=== PATIENT | female | born 1940 | race Caucasian/White ===

== ENCOUNTER 2018-09-29 07:36 | Observation (INO) | payer OTHER ==
[~2018-09-29] VITALS: Ht 160 cm; Wt 55.2 kg
[2018-09-29 08:04] LABS: BASOPHILS # (AUTO) 0.04 x10^3/uL (0-0.1); BASOPHILS % (AUTO) 1 % (0-1); EOSINOPHILS # (AUTO) 0.06 x10^3/uL (0-0.4); EOSINOPHILS % (AUTO) 1 % (1-7); LYMPHOCYTES # (AUTO) 0.96 x10^3/uL (1-3.4); LYMPHOCYTES % (AUTO) 11 % (22-44); MD NO; MEAN CORPUSCULAR HEMOGLOBIN 31.2 pg (27.0-34.8); MEAN CORPUSCULAR HGB CONC 32.9 g/dL (32.4-35.8); MEAN CORPUSCULAR VOLUME 94.9 fL (80-100); MEAN PLATELET VOLUME 9.3 fL (7.4-10.4); MONOCYTES # (AUTO) 0.72 x10^3/uL (0.2-0.8); MONOCYTES % (AUTO) 9 % (2-9); NEUTROPHILS # (AUTO) 6.66 x10^3/uL (1.8-6.8); NEUTROPHILS % (AUTO) 79 % (42-75); PLATELET COUNT 266 x10^3/uL (130-400); RED BLOOD COUNT 3.86 x10^6/uL (3.82-5.3); RED CELL DISTRIBUTION WIDTH 13.9 % (9.6-15.2)
[2018-09-29 08:15] LABS: ALBUMIN 3.6 g/dL (3.4-5.0); ANION GAP 11 mmol/L (5-15); CHLORIDE 109 mmol/L (98-107); CREATININE 0.83 mg/dL (0.55-1.02)
[2018-09-29 08:17] LABS: CREATINE KINASE, TOTAL 156 U/L (26-192)
[2018-09-29] MEDS ORDERED: SODIUM CHLORIDE FLUSH 10ML SYR IVF PRN (09:30)
[2018-09-29] MEDS ORDERED: HYDROcodone/APAP 5/325 TABLET PO ONE (09:30)
[2018-09-29] MEDS ORDERED: HYDROcodone/APAP 5/325 TABLET PO PRN (09:30)
[2018-09-29] MEDS ORDERED: HYDROcodone/APAP 5/325 TABLET ONE (09:37)
[2018-09-29] MEDS ORDERED: SYNTHR (09:43)
[2018-09-29] MEDS ORDERED: ENALAPRIL PO (09:43)
[2018-09-29] MEDS ORDERED: CALC-46 PO (09:45)
[2018-09-29 10:39] VITALS: BP 153/74
[2018-09-29] MEDS ORDERED: TEMAZEPAM 15 MG CAPSULE PO PRN (12:30)
[2018-09-29] MEDS ORDERED: ACETAMINOPHEN 325 MG TABLET PO PRN (12:30)
[2018-09-29] MEDS ORDERED: DOCUSATE 100 MG CAPSULE PO PRN (12:30)
[2018-09-29 13:35] VITALS: BP 108/63
[2018-09-29 19:42] VITALS: BP 152/82
[2018-09-29] MEDS: CALCIUM/VITAMIN D3 250-125 TABLET PO SCH (20:05)
[2018-09-30 00:56] VITALS: BP 115/65
[2018-09-30 08:17] VITALS: BP 128/73
[2018-09-30] MEDS: CALCIUM/VITAMIN D3 250-125 TABLET PO SCH ×2 (08:19→21:06)
[2018-09-30] MEDS: ENALAPRIL 10 MG TABLET PO SCH (08:20)
[2018-09-30] MEDS ORDERED: SENNA/DOCUSATE TABLET PO PRN (12:00)
[2018-09-30] MEDS ORDERED: MAGNESIUM CITRATE 300ML ORAL SOL PO PRN (12:00)
[2018-09-30] MEDS ORDERED: ONDANSETRON ODT 4 MG PO PRN (12:00)
[2018-09-30 14:45] VITALS: BP 113/69
[2018-09-30 17:04] LABS: MICROSCOPIC AUTO
[2018-09-30 17:06] LABS: CULTURE INDICATED? YES
[2018-09-30 18:38] VITALS: BP 100/58
[2018-10-01 00:14] VITALS: BP 109/58
[2018-10-01] MEDS: LEVOTHYROXINE 88 MCG TABLET PO SCH (05:54)
[2018-10-01 07:13] VITALS: BP 89/45
[2018-10-01 07:45] VITALS: BP 94/58
[2018-10-01] MEDS: ENALAPRIL 10 MG TABLET PO SCH (07:46)
[2018-10-01] MEDS: CALCIUM/VITAMIN D3 250-125 TABLET PO SCH ×2 (07:46→20:55)
[2018-10-01] MEDS: SULFAMETH./TRIMETHOPRIM DS 800MG/160MG TABLET PO SCH ×2 (10:14→20:55)
[2018-10-01 13:18] VITALS: BP 123/69
[2018-10-01 19:36] VITALS: BP 100/67
[2018-10-02 02:10] VITALS: BP 116/60
[2018-10-02] MEDS: LEVOTHYROXINE 88 MCG TABLET PO SCH (06:21)
[2018-10-02 07:00] VITALS: BP 144/65
[2018-10-02] MEDS: CALCIUM/VITAMIN D3 250-125 TABLET PO SCH (07:44)
[2018-10-02] MEDS: SULFAMETH./TRIMETHOPRIM DS 800MG/160MG TABLET PO SCH (07:44)
[2018-10-02] MEDS ORDERED: ENALAPRIL 5MG TABLET PO SCH (09:30)
[2018-10-02 10:49] VITALS: BP 138/68
[2018-10-02 13:35] VITALS: BP 115/72
[2018-10-02] MEDS ORDERED: DOCU-131 PO (14:00)
[2018-10-02] MEDS ORDERED: SULF-169 PO (14:00)
[2018-10-02] MEDS ORDERED: TRAM50TA2 PO (14:00)
[2018-10-02] MEDS ORDERED: TEMA15CA6 PO (14:00)
[2018-10-02] MEDS ORDERED: LEVO88TA2 PO (14:00)
[2018-10-02] MEDS ORDERED: SENN1TAB8 PO (14:00)
[2018-10-02] MEDS ORDERED: ACET325T14 PO (14:00)
[2018-10-02] MEDS ORDERED: ENAL5TAB PO (14:00)
[2018-10-02 17:30] VITALS: BP 123/70
== END 2018-10-02 17:50 ==
LOC: ED 09:04 → EDIP 09:21 → INTOOBSV 09:21 → 4NOR 10:25
PROVIDERS: ADMIT Internal Medicine; ATTEND Internal Medicine
DX: S42.201A Unspecified fracture of upper end of right humerus, initial encounter for closed fracture (principal); G35 Multiple sclerosis; I10 Essential (primary) hypertension; N39.0 Urinary tract infection, site not specified; E03.9 Hypothyroidism, unspecified; M81.0 Age-related osteoporosis without current pathological fracture; W18.30XA Fall on same level, unspecified, initial encounter; Y92.009 Unspecified place in unspecified non-institutional (private) residence as the place of occurrence of the external cause; Z82.49 Family history of ischemic heart disease and other diseases of the circulatory system; Z93.59 Other cystostomy status; Z99.3 Dependence on wheelchair; Z66 Do not resuscitate
CPT/HCPCS: 36415; 73030; 80048; 81001; 82040; 82550; 85025; 87077; 87086; 87186; 97116; 97162; 97167; 99284; G0378

== ENCOUNTER → 2019-03-05 | Outpatient (CLI) | payer MEDICARE, OTHER ==
[~2019-03-05] MED LIST: ACET325T14 PO; CALC-46 PO; DOCU-131 PO; ENAL5TAB PO; ENALAPRIL PO; GADOBUTROL 7.5 MMOL/7.5 ML PFS ONE; LEVO88TA2 PO; SENN-177 PO; SULF-169 PO; SYNTHR; TEMA15CA6 PO; TRAM50TA2 PO
== END | disposition home or self-care (01) ==
LOC: CFH 09:34
PROVIDERS: ATTEND Psychiatry & Neurology Neurology
DX: M50.30 Other cervical disc degeneration, unspecified cervical region (principal); G35 Multiple sclerosis
CPT/HCPCS: 70553; 72156; A9585

== ENCOUNTER 2019-06-11 13:26 | Outpatient (CLI) | payer MEDICARE ==
[~2019-06-11 13:26] MED LIST changes: -GADOBUTROL 7.5 MMOL/7.5 ML PFS ONE
== END 2019-06-11 23:59 | disposition home or self-care (01) ==
LOC: CFH 13:26
PROVIDERS: ATTEND Physician Assistant
DX: N31.9 Neuromuscular dysfunction of bladder, unspecified (principal)
CPT/HCPCS: 76770

== ENCOUNTER → 2019-07-28 | Outpatient (CLI) | payer MEDICARE | END | disposition home or self-care (01) | LOC: RAD 15:38 | PROVIDERS: ATTEND Internal Medicine | DX: R05 Cough (principal) | CPT/HCPCS: 71046 ==

== ENCOUNTER → 2020-02-15 | Outpatient (CLI) | payer MEDICARE | END | disposition home or self-care (01) | LOC: EDSTATUS 10:45 → CFH 15:43 | PROVIDERS: ATTEND Physician Assistant | DX: N31.9 Neuromuscular dysfunction of bladder, unspecified (principal) | CPT/HCPCS: 76770 ==

== ENCOUNTER 2020-03-05 16:27 | Emergency (ER) | payer MEDICARE ==
[~2020-03-05] VITALS: Ht 154.9 cm; Wt 51.8 kg
--- NOTE | 2020-03-05 17:46 | NUR ---
URINE SAMPLE COLLECTED AND WALKED TO LAB
[2020-03-05] MEDS ORDERED: SODIUM CHLORIDE FLUSH 10ML SYR IVF ONE (18:00)
[2020-03-05 18:10] LABS: MICROSCOPIC AUTO
[2020-03-05] MEDS: SODIUM CHLORIDE 0.9% 1,000ML IVBOLUS ONE ×2 (18:14→19:16)
--- NOTE | 2020-03-05 18:21 | NUR ---
Patient received 1L NS with [facility]. Hold fluids per WEN Pearson.
[2020-03-05 18:24] LABS: BASOPHILS # (AUTO) 0.01 x10^3/uL (0-0.1); BASOPHILS % (AUTO) 0 % (0-1); EOSINOPHILS # (AUTO) 0.24 x10^3/uL (0-0.4); EOSINOPHILS % (AUTO) 2 % (1-7); LYMPHOCYTES # (AUTO) 0.37 x10^3/uL (1-3.4); LYMPHOCYTES % (AUTO) 4 % (22-44); MD NO; MEAN CORPUSCULAR HEMOGLOBIN 30.7 pg (27.0-34.8); MEAN CORPUSCULAR HGB CONC 32.9 g/dL (32.4-35.8); MEAN CORPUSCULAR VOLUME 93.3 fL (80-100); MEAN PLATELET VOLUME 9.8 fL (7.4-10.4); MONOCYTES % (AUTO) 7 % (2-9); NEUTROPHILS # (AUTO) 8.67 x10^3/uL (1.8-6.8); NEUTROPHILS % (AUTO) 87 % (42-75); PLATELET COUNT 283 x10^3/uL (130-400); RED BLOOD COUNT 4.19 x10^6/uL (3.82-5.3); RED CELL DISTRIBUTION WIDTH 13.6 % (9.6-15.2)
[2020-03-05 18:29] LABS: ALANINE AMINOTRANSFERASE 17 U/L (12-78); ALBUMIN 3.5 g/dL (3.4-5.0); ANION GAP 5 mmol/L (5-15); CALCIUM 8.6 mg/dL (8.5-10.1); CHLORIDE 111 mmol/L (98-107)
[2020-03-05 18:32] LABS: ALKALINE PHOSPHATASE 79 U/L (45-117); BILIRUBIN,TOTAL 0.7 mg/dL (0.2-1.0); CREATININE 0.89 mg/dL (0.55-1.02); TOTAL PROTEIN 6.9 g/dL (6.4-8.2)
[2020-03-05] MEDS ORDERED: CEFTRIAXONE PMX 1GM/50ML 50 ML IV ONE (19:00)
[2020-03-05] MEDS ORDERED: CEFTRIAXONE PMX 1GM/50ML 50 ML ONE (19:08)
--- NOTE | 2020-03-05 19:18 | NUR ---
Anel to. Provided with water. No other needs.
[2020-03-05 20:31] VITALS: BP 129/86
--- NOTE | 2020-03-05 20:37 | NUR ---
Patient/Caregiver given discharge instructions and they have confirmed that they understand the instructions. Taken out in wheelchair for comfort.
== END 2020-03-05 20:40 | disposition home or self-care (01) ==
LOC: ED 18:00
DX: N30.00 Acute cystitis without hematuria (principal); R10.30 Lower abdominal pain, unspecified; R30.0 Dysuria; I10 Essential (primary) hypertension; E03.9 Hypothyroidism, unspecified; Z90.89 Acquired absence of other organs
CPT/HCPCS: 36415; 80053; 81001; 83605; 85025; 87040; 87086; 96365; 99284; J0696; J7030